=== PATIENT | female | born 1975 | race Caucasian/White ===

== ENCOUNTER 2019-09-19 15:34 | Emergency (ER) | payer SELFPAY ==
[~2019-09-19] VITALS: Ht 167.6 cm; Wt 111.4 kg
[2019-09-19 16:04] VITALS: Ht 167.6 cm; Wt 111.4 kg
[2019-09-19 16:36] LABS: BILIRUBIN NEGATIVE (NEGATIVE); GLUCOSE NEGATIVE (NEGATIVE); KETONE NEGATIVE (NEGATIVE); NITRITE NEGATIVE (NEGATIVE); SPECIFIC GRAVITY 1.015 (1.005-1.020); UROBILINOGEN NORMAL (NORMAL)
[2019-09-19 16:37] LABS: HCG URINE NEGATIVE (NEGATIVE)
[2019-09-19 16:44] LABS: BACTERIA MODERATE /hpf (NEGATIVE); EPITHELIAL CELLS 0-5 /hpf (0-5); RED CELLS - URINE 25-50 /hpf (0-5)
[2019-09-19 16:46] LABS: BASOPHILS 0.4 % (0-2); EOSINOPHILS 2.9 % (0-7); IMMATURE GRANULOCYTES 0.3 % (0-5); LYMPHOCYTES 33.6 % (15-50); MCHC 32.6 g/dL (31.0-37.0); MCV 89.2 fL (80.0-100.0); MEAN PLATELET VOLUME 11.5 fL (7.4-10.4); MONOCYTES 5.5 % (2-11); NEUTROPHILS 57.3 % (40-80); PLATELET COUNT 234 10x3/uL (130-400); RBC 4.82 10x6/uL (4.00-5.40); WBC 7.9 10x3/uL (4.8-10.8)
[2019-09-19 16:56] LABS: CALC OSMOLALITY 275 mosm/kg (275-300); CALCIUM 8.6 mg/dL (8.5-10.1); CARBON DIOXIDE 28.1 mmol/L (21.0-32.0); CHLORIDE - SERUM 104 mmol/L (98-107); GLUCOSE 92 mg/dL (74-106); POTASSIUM - SERUM 4.2 mmol/L (3.5-5.1); SODIUM 139 mmol/L (136-145); UREA NITROGEN 8 mg/dL (7-18); eGFR NON AFRICAN AMERICAN 64 mL/min (90-120)
[2019-09-19 17:04] LABS: ALBUMIN 3.9 g/dL (3.4-5.0); ALKALINE PHOSPHATASE 64 U/L (30-120); ALT (SGPT) 22 U/L (10-68); AMYLASE - SERUM 49 U/L (25-115); BILIRUBIN - TOTAL 0.38 mg/dL (0.2-1.3); LIPASE 82 U/L (73-393); PROTEIN - SERUM 7.7 g/dL (6.4-8.2); TROPONIN-I < 0.017 ng/mL (0.000-0.060)
[2019-09-19] MEDS ORDERED: OMNICEF300 MG PO (19:07)
[2019-09-19] MEDS ORDERED: ZOFRAN ODT4 MG/UDTAB PO (19:07)
[2019-09-19 20:04] VITALS: BP 130/98
== END 2019-09-19 20:04 | disposition home or self-care (01) ==
LOC: D.ER 15:34
PROVIDERS: Family Medicine
DX: N12 Tubulo-interstitial nephritis, not specified as acute or chronic (principal); M54.5 Low back pain

== ENCOUNTER 2019-10-08 20:08 | Emergency (ER) | payer OTHER ==
[~2019-10-08] VITALS: Ht 167.6 cm; Wt 109.1 kg
[~2019-10-08 20:08] MED LIST: OMNICEF300 MG PO; ZOFRAN ODT4 MG/UDTAB PO
[2019-10-08 20:14] VITALS: Ht 167.6 cm; Wt 109.1 kg
[2019-10-08 21:27] LABS: BILIRUBIN NEGATIVE (NEGATIVE); GLUCOSE NEGATIVE (NEGATIVE); KETONE NEGATIVE (NEGATIVE); NITRITE NEGATIVE (NEGATIVE); UROBILINOGEN NORMAL (NORMAL)
[2019-10-08 21:32] LABS: BACTERIA MODERATE /hpf (NEGATIVE); RED CELLS - URINE 0-5 /hpf (0-5)
[2019-10-08] MEDS ORDERED: BACTRIM DS TAB1 EAC1 PO (21:40)
[2019-10-08 21:49] VITALS: BP 149/77
== END 2019-10-08 21:50 | disposition home or self-care (01) ==
LOC: D.ER 20:08
PROVIDERS: Family Medicine
DX: N39.0 Urinary tract infection, site not specified (principal); R50.9 Fever, unspecified; R53.1 Weakness; R52 Pain, unspecified

== ENCOUNTER 2019-10-17 13:00 | Emergency (ER) | payer OTHER ==
[~2019-10-17] VITALS: Ht 167.6 cm; Wt 109.1 kg
[~2019-10-17 13:00] MED LIST changes: +BACTRIM DS TAB1 EAC1 PO
[2019-10-17 13:21] VITALS: Ht 167.6 cm; Wt 109.1 kg
[2019-10-17 13:59] LABS: BASOPHILS 0.5 % (0-2); EOSINOPHILS 3.8 % (0-7); HEMATOCRIT 45.5 % (36.0-48.0); HEMOGLOBIN 14.7 g/dL (12-16); IMMATURE GRANULOCYTES 0.2 % (0-5); LYMPHOCYTES 51.2 % (15-50); MCH 28.4 pg (26.0-34.0); MCHC 32.3 g/dL (31.0-37.0); MEAN PLATELET VOLUME 11.8 fL (7.4-10.4); NEUTROPHILS 35.3 % (40-80); RBC 5.17 10x6/uL (4.00-5.40); RDW 13.7 % (11.5-14.5); WBC 4.2 10x3/uL (4.8-10.8)
[2019-10-17 14:01] LABS: PLATELET COUNT 168 10x3/uL (130-400)
[2019-10-17 14:08] LABS: APTT 27.1 SECONDS (22.8-39.4); INR 0.99 (0.85-1.17)
[2019-10-17 14:11] LABS: CALC OSMOLALITY 271 mosm/kg (275-300); CALCIUM 8.4 mg/dL (8.5-10.1); CARBON DIOXIDE 26.2 mmol/L (21.0-32.0); CHLORIDE - SERUM 103 mmol/L (98-107); CREATININE - SERUM 0.8 mg/dL (0.6-1.3); GLUCOSE 103 mg/dL (74-106); POTASSIUM - SERUM 3.8 mmol/L (3.5-5.1); SODIUM 137 mmol/L (136-145); UREA NITROGEN 7 mg/dL (7-18); eGFR NON AFRICAN AMERICAN 83 mL/min (90-120)
[2019-10-17 14:28] LABS: ALBUMIN 3.4 g/dL (3.4-5.0); ALKALINE PHOSPHATASE 65 U/L (30-120); ALT (SGPT) 20 U/L (10-68); BILIRUBIN - TOTAL 0.37 mg/dL (0.2-1.3); CKMB 0.5 U/L (0.0-3.6); CREATINE KINASE 48 UL (21-215); PRO BNP 22 pg/mL (0-125); PROTEIN - SERUM 7.5 g/dL (6.4-8.2); TROPONIN-I < 0.017 ng/mL (0.000-0.060)
[2019-10-17] MEDS ORDERED: ALBUTEROL SULF8.5 GM INH (15:53)
[2019-10-17] MEDS ORDERED: STERAPRED DS 1010 MG PO (15:53)
[2019-10-17] MEDS ORDERED: CLARITIN 10 MG10 MG PO (16:00)
[2019-10-17 16:26] VITALS: BP 127/76
== END 2019-10-17 16:26 | disposition home or self-care (01) ==
LOC: D.ER 13:00
PROVIDERS: Emergency Medicine
DX: J06.9 Acute upper respiratory infection, unspecified (principal); R06.02 Shortness of breath; U07.1 COVID-19; R05 Cough; R68.89 Other general symptoms and signs

== ENCOUNTER → 2020-05-17 13:03 | Outpatient (CLI) | payer OTHER ==
[2019-10-17 13:21] VITALS: BMI 38.8
[~2020-05-17 13:03] MED LIST changes: +ALBUTEROL SULF8.5 GM INH; +CLARITIN 10 MG10 MG PO; +STERAPRED DS 1010 MG PO
== END | disposition home or self-care (01) ==
LOC: D.US 13:00
PROVIDERS: ATTEND Nurse Practitioner Family
DX: E04.9 Nontoxic goiter, unspecified (principal)